=== PATIENT | male | born 1995 | race Caucasian/White ===

== ENCOUNTER 2017-01-22 03:18 | Emergency (ER) | payer OTHER ==
[~2017-01-22] VITALS: Ht 182.9 cm; Wt 85.0 kg
[2017-01-22 03:20] VITALS: TEMP 36.9; Ht 182.9 cm; Wt 85.0 kg
[2017-01-22 03:53] LABS: BUN/CREATININE RATIO 23.6 (10-20); CALCIUM 8.4 mg/dl (8.5-10.1); CREATININE 1.24 mg/dl (0.60-1.40); POTASSIUM 3.7 mmol/L (3.5-5.1)
--- NOTE | 2017-01-22 07:56 | EMERGENCY ROOM VISIT NOTE ---
History Report prepared by Dejuan: Edita Leigh Under the Supervision of: Dr. Emily Cantor D.O. First contact with patient: 03:23 Chief Complaint: ALCOHOL OVERDOSE Stated Complaint: ALCOHOL OVERDOSE History of Present Illness The patient is a 21 year old male who presents to the Emergency Room with complaints of an episode of alcohol overdose occurring tonight. Per nursing staff, the patient was found by security by the pool at the [facility]. The patient denies knowing how he got there or even going there. He states he remembers taking shot s at his apartment with plans to go to the [employer], but denies remembering getting to the [employer]. The patient denies knowing where the scratches came from. HPI limited secondary to alcohol intoxication. Source of History: patient, nursing staff History Limited By: intoxication Onset: tonight Position: other (global) Quality: other (global) Timing: other (episode) Review of Systems Pt denies headache, change in vision, fevers, chest pain, shortness of breath, nausea, vomiting, diarrhea, pain with urination, and melena. Past Medical & Surgical Medical Problems: (1) No Known Active Medical Problems Family History No pertinent family history Social History Alcohol Use: occasionally Marital Status: single Housing Status: lives with roommate Occupation Status: [employer] student Current/Historical Medications No Active Prescriptions or Reported Meds Allergies Coded Allergies: No Known Allergies (Unverified , 01/22/17) Physical Exam Vital Signs Date Time Temp Pulse Resp B/P (MAP) Pulse Ox O2 Delivery O2 Flow Rate FiO2 01/22/17 10:55 101 16 100 01/22/17 09:15 106 16 97/70 96 Room Air 01/22/17 07:36 83 16 103/66 93 01/22/17 05:50 106 16 124/69 96 Room Air 01/22/17 03:30 105 01/22/17 03:29 Room Air 01/22/17 03:29 Room Air 01/22/17 03:27 105 01/22/17 03:20 36.9 104 18 153/92 98 Room Air Physical Exam GENERAL: alert, well appearing, well nourished, no distress, non-toxic EYE EXAM: normal conjunctiva, PERRL and EOM's grossly intact OROPHARYNX: no exudate, no erythema, lips, buccal mucosa, and tongue normal and mucous membranes are moist NECK: supple, no nuchal rigidity, no adenopathy, non-tender LUNGS: Clear to auscultation. Normal chest wall mechanics, no wheezes/rhonchi/ rales HEART: no murmurs, S1 normal and S2 normal, no crepitus, step-off, ecchymosis or evidence of trauma ABDOMEN: abdomen soft, non-tender, normo-active bowel sounds, no masses, no rebound or guarding. Superficial scratch to LLQ. No ecchymosis or evidence of trauma, pelvis stable. BACK: Back is symmetrical on inspection and there is no deformity, no midline tenderness, no CVA tenderness. SKIN: no rashes and no bruising UPPER EXTREMITIES: upper extremities are grossly normal. Full range of motion, no deformities, normal distal pulses. LOWER EXTREMITIES: No pitting edema. Superficial scratch to anterior proximal LLE. Full range of motion, no deformities, normal distal pulses. NEURO EXAM: Normal sensorium, cranial nerves II-XII grossly intact, normal speech, no gross weakness of arms, no gross weakness of legs. Medical Decision & Procedures Laboratory Results 01/22/17 03:25 Test 01/22/17 03:25 Anion Gap 8.0 mmol/L (3-11) Est Creatinine Clear Calc Drug Dose 105.2 ml/min Estimated GFR () 97.1 Estimated GFR (Non- 83.8 BUN/Creatinine Ratio 23.6 (10-20) Calcium Level 8.4 mg/dl (8.5-10.1) Ethyl Alcohol mg/dL 232.0 mg/dl (0-3) Laboratory results per my review. ED Course 0323: The patient was evaluated in room C11A. A complete history and physical exam was performed. 0645: I reevaluated the patient and he is still sleeping. 0749: Upon reevaluation, the patient is feeling better. He is going to call a sober friend. I discussed the findings and the treatment plan with the patient. He verbalizes agreement and understanding. The patient was discharged home. Medical Decision Etiologies such as alcohol intoxication, toxicologic, infection, hypoglycemia, electrolyte abnormalities, cardiac sources, intracerebral event, neurologic, as well as others were entertained. Patient observed her for several hours, this may be a change in vital signs or patient's repeat exams. Upon sobriety patient reexamined and found to have no additional complaints. Repeat exam was unremarkable for any chest pain, trouble breathing, abdominal pain. Patient with full range of motion of all 4 extremities. I've a low suspicion for any additional traumatic injury despite 2 superficial scratches noted. Discussed with patient appropriate use of alcohol, symptoms to watch and return for, follow-up regarding potential injuries, he verbalized understanding was agreeable with plan. Patient with a steady gait, tolerating by mouth and was well-appearing at time of discharge. Patient had no vomiting, desats, or any other severe changes or findings to warrant additional trauma imaging and risk of radiation or additional labs. Impression Primary Impression: Alcoholic intoxication Scribe Attestation The scribe's documentation has been prepared under my direction and personally reviewed by me in its entirety. I confirm that the note above accurately reflects all work, treatment, procedures, and medical decision making performed by me. Departure Information Dispostion Home / Self-Care Prescriptions No Active Prescriptions or Reported Meds Forms HOME CARE DOCUMENTATION FORM, IMPORTANT VISIT INFORMATION Patient Instructions My [facility] Additional Instructions Please do not drink alcohol until his legal at age 21. If you choose to drink, please do so responsibly and in a safe location. Do not drink and drive. If you have any new or concerning symptoms, please return the emergency room. Please monitor the cut see sustained to make sure that they do not begin to look infected. Concerning signs or symptoms would include increasing redness, a foul odor, fevers, or increasing pain. If you develop these or have any other concerning symptoms including headaches, dizziness, vision changes, vomiting, neck or back pain, trouble breathing, please return the emergency room. Problem Qualifiers Primary Impression: Alcoholic intoxication Complication of substance-induced condition: uncomplicated Qualified Codes: F10.920 - Alcohol use, unspecified with intoxication, uncomplicated
[2017-01-22 09:15] VITALS: BP 97/70
[2017-01-22 10:55] VITALS: PULSE 101; O2SAT 100
== END 2017-01-22 10:55 | disposition home or self-care (01) ==
LOC: C.EDC 03:21
DX: F10.920 Alcohol use, unspecified with intoxication, uncomplicated (principal); Y90.7 Blood alcohol level of 200-239 mg/100 ml